=== PATIENT | female | born 1990 | race African-American/Black ===

== ENCOUNTER 2023-12-17 06:27 | Emergency (ER) | payer OTHER ==
[2023-12-17 06:35] VITALS: BP 114/53; PULSE 77; RESP 18; TEMP 98.6; BMI 25.6
[2023-12-17] MEDS ORDERED: FAMOTIDINE 20 MG TABLET ONE (07:56)
[2023-12-17] MEDS ORDERED: MAG HYDROX/AL HYDROX/SIMETH 30 ML UNIT-DOSE CUP ONE (07:57)
[2023-12-17] MEDS: FAMOTIDINE 10 MG TABLET PO ONE (08:00)
[2023-12-17] MEDS: MAG HYDROX/AL HYDROX/SIMETH 30 ML UNIT-DOSE CUP PO ONE (08:05)
== END 2023-12-17 09:15 | disposition home or self-care (01) ==
LOC: JER 06:27
DX: R05.1 Acute cough (principal); M79.10 Myalgia, unspecified site; R07.89 Other chest pain; Z20.822 Contact with and (suspected) exposure to COVID-19
CPT/HCPCS: 0241U-QW; 71046-TC-FY; 93005; 93010; 99285-25